=== PATIENT | female | born 1990 | race Caucasian/White ===

== ENCOUNTER 2016-09-02 13:02 | Observation (INO) | payer BC ==
[~2016-09-02] VITALS: Ht 180.3 cm; Wt 85.9 kg
[2016-09-04] MEDS ORDERED: PRENATAL 1+1)(P1 TAB PO (15:19)
== END 2016-09-04 17:25 | disposition disaster alternative care site (69) ==
LOC: GOBM 13:02 → EDSTATUS 14:32 → GOBM 15:55 → GOBS 09-04 14:45
PROVIDERS: ADMIT Family Medicine
DX: Z34.83 Encounter for supervision of other normal pregnancy, third trimester (principal); Z3A.35 35 weeks gestation of pregnancy
CPT/HCPCS: G0463

== ENCOUNTER 2016-09-04 21:32 | Inpatient (IN) | payer BC ==
[~2016-09-04] VITALS: Ht 180.3 cm; Wt 85.0 kg
--- NOTE | ~2016-09-04 | OR ---
PATIENT'S NAME: JORY LYNCH [facility] AGE: 26 [address] ROOM: [address] [address] LOCATION: [facility] ADMIT DATE: 09/04/2016 OR/Procedure Report DISCHARGE DATE: FAMILY PHYSICIAN: Avani Wagoner MD ATTENDING PHYSICIAN: Avani Wagoner SURGEON: Bea Krause MD HEAD BAKER: DATE OF PROCEDURE: 09/05/2016 PREOPERATIVE DIAGNOSES: 1. Intrauterine at forty weeks and two days. 2. Active labor and spontaneous rupture of membranes. POSTOPERATIVE DIAGNOSES: 1. Intrauterine at forty weeks and two days. 2. Active labor and spontaneous rupture of membranes. PROCEDURES PERFORMED: Spontaneous vaginal delivery. ESTIMATED BLOOD LOSS: 350 mL. ANESTHESIA: Epidural. FINDINGS: Female with Apgars of eight and nine. Weight 7 pounds 7 ounces. Intact placenta, three-vessel cord. Second-degree perineal laceration and left 3-cm labial laceration. INDICATIONS: This is a 26-year-old, 2, para 0-0-1-0, who presented to Labor and Delivery in spontaneous active labor. She had a previous history of a loss at around 20 weeks for a cord accident, and some first-trimester bleeding in this . Otherwise, was uncomplicated. She received an epidural after arrival. She had spontaneous rupture of membranes with clear fluid, and progressed to complete. She began expulsive efforts and pushed for a little over an hour. DESCRIPTION OF PROCEDURE: With expulsive efforts, head was delivered over an intact perineum. There was a loose nucal cord that was reduced at the perineum. Rest of the fetus was delivered. Mouth and nose were bulb suctioned. Cord was clamped and baby was placed on maternal abdomen. Cord was cut by the patient's . Cord blood were drawn. The placenta was delivered with manual tractions, was intact, and had a three- vessel cord. Cervix and vagina were found to have no evidence of lacerations. There was a second-degree perineal laceration that was repaired in the usual fashion with 3-0 Vicryl, and a left 3-cm labial laceration that was mostly PATIENT'S NAME: JORY LYNCH [facility] AGE: 26 Y [address] ROOM: [address] [address] LOCATION: [facility] ADMIT DATE: 09/04/2016 OR/Procedure Report DISCHARGE DATE: FAMILY PHYSICIAN: Avani Wagoner MD ATTENDING PHYSICIAN: Avani Wagoner hemostatic, but large enough that I opted to repair it with 2-0 Vicryl. COMPLICATIONS: None. CONDITION: Mom and baby are both stable in the room. MD PADMINI RAMOS/[email or web address] /[id number] d: 09/05/16 0625 t: 09/09/16 1115, OPERATIVE SUMMARY
[~2016-09-04 21:32] MED LIST: PRENATAL 1+1)(P1 TAB PO
[2016-09-04 22:10] LABS: BASOPHIL % 0.2 %; EOSINOPHIL # 0.1 K/uL (0.0-0.5); HEMATOCRIT 32.8 % (33.0-46.0); HEMOGLOBIN 10.8 g/dL (11.0-15.0); IMMATURE GRANULOCYTE % 0.3 %; LYMPHOCYTE % 18.6 %; MCH 28.6 pg (27.0-34.0); MCHC 32.9 gm/dL (32.0-36.5); MONOCYTE # 0.7 K/uL (0.0-1.0); MONOCYTE % 6.2 %; MPV 11.2 fl (9.4-12.4); NEUTROPHIL # (ANC) 7.7 K/uL (1.8-7.8); NEUTROPHIL % 73.7 %; NRBC % 0 /100WBC (0-0.00); PLATELET COUNT 175 K/uL (150-450); RBC 3.77 M/uL (3.50-5.00); RDW-CV 14.5 % (11.9-14.6); WBC 10.5 K/uL (4.0-11.0)
--- NOTE | 2016-09-06 05:03 | NUR ---
Last VS: T:98.0 P:70 R: 14 BP: 104/66 Pain ratin. Last pain med: 2 Percocet Medicated at: 0215 Effective: Sleeping Breasts: soft, Nipples: intact Fundus: firm, even, midline Lochia: small, rubra Epis/Perineum: 2nd degree Voiding well: voids well on own Significant event: VSS, last motrin given at 2224, uses teapads, Lyssaen ordered this a.m. Needs Rhogam today.
[2016-09-06 05:22] LABS: BASOPHIL % 0.2 %; EOSINOPHIL # 0.2 K/uL (0.0-0.5); EOSINOPHIL % 2.5 %; HEMATOCRIT 27.2 % (33.0-46.0); HEMOGLOBIN 8.5 g/dL (11.0-15.0); IMMATURE GRANULOCYTE % 0.3 %; LYMPHOCYTE # 2.1 K/uL (0.8-4.0); MCH 28.7 pg (27.0-34.0); MCHC 31.3 gm/dL (32.0-36.5); MCV 91.9 fl (83.0-98.0); MONOCYTE # 0.6 K/uL (0.0-1.0); MONOCYTE % 6.6 %; MPV 11.2 fl (9.4-12.4); NEUTROPHIL # (ANC) 5.8 K/uL (1.8-7.8); NEUTROPHIL % 66.4 %; NRBC % 0 /100WBC (0-0.00); PLATELET COUNT 138 K/uL (150-450); RBC 2.96 M/uL (3.50-5.00); RDW-CV 14.9 % (11.9-14.6); WBC 8.7 K/uL (4.0-11.0)
--- NOTE | 2016-09-06 17:31 | NUR ---
UP AD JAMIE. C/O TAILBONE DISCOMFORT. ENC AMBULATION. GOING BETTER. PERCOCET 2 AT 1223 AND MOTRIN AT 1520. PLAN HOME TOMORROW.
--- NOTE | 2016-09-07 07:00 | NUR ---
Introduced myself as patient's primary care nurse, along / [employer] [facility] students that will be caring for her & her infant today. Reminded to call if has any questions, needs or concerns. ~~Discussed routine dismissal procedure. Continue routine , mother/baby cares.
[2016-09-07] MEDS ORDERED: LANSINOH7 GM (09:35)
[2016-09-07] MEDS ORDERED: APNO TOP (09:35)
[2016-09-07] MEDS ORDERED: MOTRIN800 MG PO (09:35)
[2016-09-07] MEDS ORDERED: PERCOCET 5-3251 EACH PO (09:36)
[2016-09-07] MEDS ORDERED: DERMOPLAST SPRA56 GM TOP (09:38)
--- NOTE | 2016-09-07 13:56 | NUR ---
Student charting read.
== END 2016-09-07 12:10 | disposition disaster alternative care site (69) | DRG 775 ==
LOC: GOBS 21:32
PROVIDERS: Family Medicine; ADMIT Family Medicine
PROC: 10E0XZZ Delivery of Products of Conception, External Approach (ICD-10-PCS; principal; 2016-09-05)
PROC: 0UQMXZZ Repair Vulva, External Approach (ICD-10-PCS; principal; 2016-09-05)
PROC: 0KQM0ZZ Repair Perineum Muscle, Open Approach (ICD-10-PCS; principal; 2016-09-05)
PROC: 3E0234Z Introduction of Serum, Toxoid and Vaccine into Muscle, Percutaneous Approach (ICD-10-PCS; 2016-09-07)
DX: O48.0 Post-term pregnancy (principal); O26.893 Other specified pregnancy related conditions, third trimester; O70.1 Second degree perineal laceration during delivery; O70.0 First degree perineal laceration during delivery; O69.81X0 Labor and delivery complicated by cord around neck, without compression, not applicable or unspecified; Z3A.40 40 weeks gestation of pregnancy; Z37.0 Single live birth; Z67.11 Type A blood, Rh negative
CPT/HCPCS: G0463; J2405; J2590; J2791; J3010; J7120